=== PATIENT | female | born 1970 | race Caucasian/White ===

== ENCOUNTER 2021-02-18 18:12 | Emergency (ER) | payer MEDICARE, MEDICAID, SELFPAY ==
[2021-02-18 18:19] VITALS: BP 143/108; PULSE 71; RESP 20; TEMP 36.8; O2SAT 97
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
[2021-02-18 19:15] VITALS: BP 145/92; PULSE 68
== END 2021-02-18 19:15 | disposition home or self-care (01) ==
PROVIDERS: Emergency Provider Registered Nurse; PCP Internal Medicine
DX: U07.1 COVID-19 (principal); Z87.891 Personal history of nicotine dependence; J45.909 Unspecified asthma, uncomplicated; J44.9 Chronic obstructive pulmonary disease, unspecified
CPT/HCPCS: 87426; 99213; C9803; G0463

== ENCOUNTER 2021-04-27 15:09 | Emergency (ER) | payer MEDICARE, MEDICAID, SELFPAY ==
[2021-04-27 15:15] VITALS: BP 145/70; PULSE 91; RESP 20; TEMP 36.7; O2SAT 96
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
[2021-04-27] MEDS: ALBUTEROL SULFATE NEB 2.5 MG/3 ML INH INHALATION (16:40)
[2021-04-27] MEDS: IPRATROPIUM BR 0.02% INH SOLN 0.5 MG/2.5 ML VIAL INHALATION (16:40)
[2021-04-27 17:14] VITALS: PULSE 88; RESP 18; O2SAT 98
== END 2021-04-27 17:25 | disposition home or self-care (01) ==
PROVIDERS: Emergency Provider Nurse Practitioner; PCP Internal Medicine
DX: J44.1 Chronic obstructive pulmonary disease with (acute) exacerbation (principal); Z87.891 Personal history of nicotine dependence
CPT/HCPCS: 94640; 99213; G0463

== ENCOUNTER 2021-05-20 16:29 | Emergency (ER) | payer MEDICARE, MEDICAID, SELFPAY ==
[2021-05-20 16:40] VITALS: BP 156/67; PULSE 113; RESP 18; TEMP 38.3; O2SAT 98
[2021-05-20 16:50] VITALS: BP 156/67; PULSE 113; RESP 18; TEMP 38.3; O2SAT 98
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
== END 2021-05-20 17:26 | disposition home or self-care (01) ==
PROVIDERS: Emergency Provider Nurse Practitioner; PCP Internal Medicine
DX: K04.7 Periapical abscess without sinus (principal); J44.9 Chronic obstructive pulmonary disease, unspecified; Z87.891 Personal history of nicotine dependence
CPT/HCPCS: 99213; G0463

== ENCOUNTER 2022-11-10 11:46 | Emergency (ER) | payer MEDICARE, MEDICAID, SELFPAY ==
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
[2022-11-10 12:03] VITALS: BP 116/77; PULSE 92; RESP 16; TEMP 36.6; O2SAT 95
== END 2022-11-10 13:12 | disposition home or self-care (01) ==
PROVIDERS: Emergency Provider Nurse Practitioner Family; PCP Internal Medicine
DX: N39.0 Urinary tract infection, site not specified (principal); J44.9 Chronic obstructive pulmonary disease, unspecified; Z87.891 Personal history of nicotine dependence
CPT/HCPCS: 81003; 87077; 87086; 87186; 99213; G0463